=== PATIENT | female | born 1960 ===

== ENCOUNTER 2022-04-13 08:50 | Outpatient (CLI) | payer MEDICAID, SELFPAY ==
--- NOTE | 2022-04-13 08:45 | RT.EKG_ITS ---
APPROVED REPORT Exam: Resting ECG Reason for Exam: bradycardia, palpitations Patient Location: O HR:67 bpm ECG Measurements Heart Rate 67 AXIS NC 185 P 64 QRSd 94 QRS -2 QT 388 T 24 QTc 410 Conclusion Sinus rhythm...normal P axis, V-rate 50- 99 Ventricular trigeminy...trigeminy string>6 w/ V complexes Abnormal R-wave progression, late transition...QRS area<0 in V5/V6
== END 2022-04-13 08:51 | disposition home or self-care (01) ==
LOC: DI.CARD 08:51
PROVIDERS: PCP Registered Nurse; Visit Provider Internal Medicine Cardiovascular Disease
DX: R00.1 Bradycardia, unspecified (principal); R00.2 Palpitations
CPT/HCPCS: 93010